=== PATIENT | female | born 1940 | race Caucasian/White ===

== ENCOUNTER → 2018-06-19 | Outpatient (CLI) | payer OTHER, MEDICARE ==
[2018-06-19 16:48] LABS: PROTHROMBIN TIME 22.9 SECONDS (9.7-12.8)
== END ==
LOC: COL.LAB 15:34
DX: Z51.81 Encounter for therapeutic drug level monitoring (principal); I48.92 Unspecified atrial flutter; Z79.01 Long term (current) use of anticoagulants